=== PATIENT | female | born 1955 | race Asian ===

== ENCOUNTER 2019-02-23 06:10 | Day surgery (SDC) | payer MEDICAID ==
[~2019-02-23] VITALS: Ht 152.4 cm; Wt 56.7 kg
[2019-02-23] MEDS ORDERED: LR 1,000 ML IV SCH ×2 (08:06→09:18)
[2019-02-23] MEDS ORDERED: HYDROmorphone 1 MG INJ. 1 MG/ML AMPUL IVP PRN (08:15)
[2019-02-23] MEDS ORDERED: HYDROmorphone 2 MG/ML VIAL IVP PRN ×2 (08:15)
[2019-02-23] MEDS ORDERED: MEPERIDINE HCL/PF 25 MG/ML DISP.SYRIN IVP PRN (08:15)
[2019-02-23] MEDS ORDERED: ROCURONIUM BROMIDE 10 MG/ML (ZEMURON) IV ONE (08:30)
[2019-02-23] MEDS ORDERED: fentaNYL CITRATE/PF 100 MCG/2 ML AMP IVP ONE (08:30)
[2019-02-23] MEDS ORDERED: LR 1,000 ML IV.SOLN IV ONE (08:30)
[2019-02-23] MEDS ORDERED: PROPOFOL 200MG/ 20ML VIAL (DIPRIVAN) IV ONE (08:30)
[2019-02-23] MEDS ORDERED: NS 1000 ML IV.SOLN IV ONE (08:30)
[2019-02-23] MEDS ORDERED: MIDAZOLAM HCL 5 MG/5 ML VIAL IVP ONE (08:30)
[2019-02-23] MEDS ORDERED: DEXAMETHASONE SOD PHOSPHATE 4 MG/ML VIAL IVP ONE (08:30)
[2019-02-23] MEDS ORDERED: NS IRRIG SOLN 1000 ML IR ONE (08:30)
[2019-02-23] MEDS ORDERED: KETOROLAC TROMETHAMINE 30 MG VIAL IVP ONE (08:30)
[2019-02-23] MEDS ORDERED: SEVOFLURANE 15 MIN GAS INH ONE (08:30)
[2019-02-23] MEDS ORDERED: ONDANSETRON HCL 4 MG/2 ML VIAL IVP ONE (08:30)
[2019-02-23] MEDS ORDERED: ONDANSETRON HCL 4 MG/2 ML VIAL IVP PRN (09:30)
[2019-02-23 10:31] VITALS: BP_SYST 141
== END 2019-02-23 11:45 | disposition home or self-care (01) ==
LOC: SDS 06:10 → SMU 06:10 → SDS 11:45
PROVIDERS: ATTEND Obstetrics & Gynecology
DX: T83.32XA Displacement of intrauterine contraceptive device, initial encounter (principal); I10 Essential (primary) hypertension; Y83.8 Other surgical procedures as the cause of abnormal reaction of the patient, or of later complication, without mention of misadventure at the time of the procedure
CPT/HCPCS: 58562; 88300; 88305; J1100; J1885; J2250; J2405; J2704; J3010; J7030; J7120